=== PATIENT | male | born 1950 | race Caucasian/White ===

== ENCOUNTER → 2021-08-31 10:25 | Outpatient (CLI) | payer MEDICARE, SELFPAY | PROVIDERS: Visit Provider Ophthalmology | DX: Z01.812 Encounter for preprocedural laboratory examination (principal); Z20.822 Contact with and (suspected) exposure to COVID-19 | CPT/HCPCS: C9803; U0003; U0005 ==

== ENCOUNTER 2021-09-03 09:53 | Day surgery (SDC) | payer MEDICARE, SELFPAY ==
[2021-09-03 11:09] VITALS: BP 162/116; PULSE 84; RESP 18; TEMP 36.7; O2SAT 96; BMI 30.1
[2021-09-03 12:12] VITALS: BP 145/101; PULSE 79; RESP 18; O2SAT 96
[2021-09-03 12:17] VITALS: BP 152/95; PULSE 80; RESP 18; O2SAT 98
[2021-09-03 12:22] VITALS: BP 152/96; PULSE 78; RESP 18; O2SAT 100
[2021-09-03 12:27] VITALS: BP 159/97; PULSE 76; RESP 18; O2SAT 100
[2021-09-03 12:29] VITALS: BP 153/98; PULSE 76; RESP 16; TEMP 36.6; O2SAT 97
== END 2021-09-03 12:36 | disposition home or self-care (01) ==
LOC: OR 09:54
PROVIDERS: Visit Provider Ophthalmology
DX: H25.811 Combined forms of age-related cataract, right eye (principal); H53.149 Visual discomfort, unspecified; I48.91 Unspecified atrial fibrillation; I25.10 Atherosclerotic heart disease of native coronary artery without angina pectoris; Z88.0 Allergy status to penicillin; Z94.1 Heart transplant status
CPT/HCPCS: 66984; V2632

== ENCOUNTER → 2021-09-14 09:56 | Outpatient (CLI) | payer MEDICARE, SELFPAY | PROVIDERS: Visit Provider Ophthalmology | DX: Z01.812 Encounter for preprocedural laboratory examination (principal); Z20.822 Contact with and (suspected) exposure to COVID-19 | CPT/HCPCS: C9803; U0003; U0005 ==

== ENCOUNTER 2021-09-17 08:55 | Day surgery (SDC) | payer MEDICARE, SELFPAY ==
[2021-09-12 10:16] VITALS: BMI 30.1
[2021-09-17 09:45] VITALS: BP 140/87; PULSE 87; RESP 16; TEMP 36.3; O2SAT 95
[2021-09-17 11:11] VITALS: BP 141/88; PULSE 84; RESP 20; O2SAT 96
[2021-09-17 11:16] VITALS: BP 135/87; PULSE 20; RESP 20; O2SAT 94
[2021-09-17 11:21] VITALS: BP 140/91; PULSE 85; RESP 18; O2SAT 94
[2021-09-17 11:26] VITALS: BP 138/92; PULSE 84; RESP 18; O2SAT 95
[2021-09-17 11:30] VITALS: BP 136/92; PULSE 65; RESP 18; TEMP 36.1; O2SAT 96
== END 2021-09-17 11:36 | disposition home or self-care (01) ==
LOC: OR 08:56
PROVIDERS: Visit Provider Ophthalmology
DX: H26.9 Unspecified cataract (principal); I48.91 Unspecified atrial fibrillation; I25.10 Atherosclerotic heart disease of native coronary artery without angina pectoris; Z94.1 Heart transplant status
CPT/HCPCS: 66984; V2632